=== PATIENT | female | born 1985 | race American Indian/Alaskan Native ===

== ENCOUNTER 2021-03-17 15:44 | Emergency (ER) | payer MEDICARE ==
[2021-03-17 16:02] VITALS: BP 134/76
[2021-03-17] MEDS ORDERED: OXYMETAZOLINE 0.05% NASAL SPRAY NS ONE (17:09)
--- NOTE | 2021-03-17 17:16 | Emergency Department Report ---
ED ENT HPI - General Chief complaint: Nosebleed Stated complaint: BLEEDING NOSE Time Seen by Provider: 03/17/21 16:08 Source: patient Mode of arrival: Ambulatory Limitations: No Limitations - History of Present Illness Initial comments: 36-year-old female the past medical history of hypertension, end-stage renal disease on dialysis (Saturday, , Saturday, anxiety) sickle cell trait, and anemia presents to the hospital complaining of intermittent epistaxis since 6 AM. Bleeding primarily from right nostril which started after blowing her nose. She denies trauma or previous history of episodic. Patient takes aspirin 81 mg daily. Last dialysis was yesterday. Inspector Barrel: Dr. Anderson - Related Data Allergies Allergy/AdvReac Type Severity Reaction Status Date / Time Penicillins Allergy Unknown Verified 03/17/21 15:58 ED Dental HPI - General Chief complaint: Nosebleed Stated complaint: BLEEDING NOSE Time Seen by Provider: 03/17/21 16:08 Source: patient Mode of arrival: Ambulatory Limitations: No Limitations - Related Data Allergies Allergy/AdvReac Type Severity Reaction Status Date / Time Penicillins Allergy Unknown Verified 03/17/21 15:58 ED Review of Systems ROS: Stated complaint: BLEEDING NOSE Other details as noted in HPI Comment: All other systems reviewed and negative ED Past Medical Hx - Past Medical History Previous Medical History?: Yes Hx Hypertension: Yes Hx Renal Disease: Yes (End-stage renal disease on dialysis) Hx Seizures: Yes Hx Psychiatric Treatment: Yes (Anxiety) Additional medical history: Anemia. Sickle cell trait - Surgical History Past Surgical History?: No ED Physical Exam - General Limitations: No Limitations - Other Other exam information: General: No acute distress Head: Atraumatic Eyes: normal appearance ENT: Moist mucous membranes, epistaxis from right nostril. Patient has a hoop noise going to the right nostril. Patient unable to lie pressure to nasal bridge due to the length of her nail Neck: Normal appearance, no midline tenderness Chest: Clear to auscultation bilaterally, right chest wall dialysis cath CV: Regular rate and rhythm, left AV fistula without thrill Abdomen: Soft, normal bowel sounds, nontender, nondistended, no rebound or guarding Back: Normal inspection Extremity: Normal inspection, full range of motion Neuro: Alert O x 3, no facial asymmetry, speech clear, no gross motor sensory deficit Psych: Appropriate behavior Skin: No rash ED Course Vital Signs 03/17/21 15:58 Temperature 98 F Pulse Rate 87 Respiratory 16 Rate Blood Pressure 134/76 [Left] O2 Sat by Pulse 100 Oximetry - Procedure Description Procedures done: Right nostril packing for epistaxis. Decongestant nasal spray x2 placed in right nostril. 5.5cm anterior Rhino rocket placed in right nostr il after activation in sterile water. inflated with apporx 6 ml of air. hemostatsis achieved ED Medical Decision Making - Lab Data Result diagrams: 03/17/21 17:23 03/17/21 17:23 Lab Results 03/17/21 03/17/21 03/17/21 Range/Units 17:23 17: 17:23 WBC 6.5 (4.5-11.0) K/mm3 RBC 3.08 L (3.65-5.03) M/mm3 Hgb 8.3 L (10.1-14.3) gm/dl Hct 26.8 L (30.3-42.9) % MCV 87 (79-97) fl MCH 27 L (28-32) pg MCHC 32 (30-34) % RDW 17.1 H (13.2-15.2) % Plt Count 238 (140-440) K/mm3 Lymph % (Auto) 20.0 (13.4-35.0) % Davis % (Auto) 7.9 H (0.0-7.3) % Eos % (Auto) 4.2 (0.0-4.3) % Baso % (Auto) 1.9 H (0.0-1.8) % Lymph # (Auto) 1.3 (1.2-5.4) K/mm3 Davis # (Auto) 0.5 (0.0-0.8) K/mm3 Eos # (Auto) 0.3 (0.0-0.4) K/mm3 Baso # (Auto) 0.1 (0.0-0.1) K/mm3 Seg Neutrophils % 66.0 (40.0-70.0) % Seg Neutrophils # 4.3 (1.8-7.7) K/mm3 PT 15.3 H (12.2-14.9) Sec. INR 1.09 (0.87-1.13) APTT 33.8 (24.2-36.6) Sec. Sodium 136 L (137-145) mmol/L Potassium 5.3 H (3.6-5.0) mmol/L Chloride 99.5 (98-107) mmol/L Carbon Dioxide 20 L (22-30) mmol/L Anion Gap 22 mmol/L BUN 47 H (7-17) mg/dL Creatinine 9.3 H (0.6-1.2) mg/dL Estimated GFR 5 ml/min BUN/Creatinine Ratio 5 % Glucose 101 H (65-100) mg/dL Calcium 9.1 (8.4-10.2) mg/dL - Medical Decision Making 36-year-old female presents to the hospital planing of epistaxis from right nostril since 6 AM. She has been unable to apply adequate pressure due to length of her nails. She removed her right sided nose ring prior to packing. Packing was successful in stopping bleeding however, patient blew her nose and packing came out. She has declined replacement of packing at this time. She was warned that she may have recurrent bleeding requiring her to return to the ER. Patient understands and prefers to go home without packing at this time. Patient received Dilaudid 0.5 mg and Zofran for pain control during packing procedure. Chronic anemia noted. Patient has mild hyperkalemia with chronic renal failure and due for dialysis tomorrow Critical Care Time: No Critical care attestation.: If time is entered above; I have spent that time in minutes in the direct care of this critically ill patient, excluding procedure time. ED Disposition Clinical Impression: Right-sided epistaxis, End stage renal disease on dialysis, Chronic anemia Disposition: 01 HOME / SELF CARE / HOMELESS Is pt being admited?: No Does the pt Need Aspirin: No Condition: Stable Instructions: Nosebleed, [id number] Additional Instructions: Follow-up with your doctor or doctor/clinic provided. Return if symptoms worsen as indicated by your discharge instructions. Referrals: JUAN MOCK MD [Staff Physician] - 3-5 Days (ENT doctor ) NGUYEN CHOU MD [Referring] - 3-5 Days (Ent doctor ) Time of Disposition: 19:32
[2021-03-17] MEDS ORDERED: WATER FOR IRRIG STERILE 250 ML BOTTLE IR NR (18:00)
[2021-03-17 18:19] LABS: Basophils # (Auto) 0.1 K/mm3 (0.0-0.1); Basophils % (Auto) 1.9 % (0.0-1.8); Eosinophils # (Auto) 0.3 K/mm3 (0.0-0.4); Eosinophils % (Auto) 4.2 % (0.0-4.3); Hemoglobin 8.3 gm/dl (10.1-14.3); Lymphocytes # (Auto) 1.3 K/mm3 (1.2-5.4); Monocytes # (Auto) 0.5 K/mm3 (0.0-0.8); Monocytes % (Auto) 7.9 % (0.0-7.3)
[2021-03-17] MEDS ORDERED: HYDROmorphone 1 MG/1 ML INJ IV ONE (18:19)
[2021-03-17] MEDS ORDERED: ONDANSETRON 4 MG/2 ML INJ IV ONE (18:19)
[2021-03-17 18:26] LABS: INR 1.09 (0.87-1.13)
[2021-03-17 18:27] LABS: Partial Thromboplastin Time 33.8 Sec. (24.2-36.6)
[2021-03-17 18:31] LABS: Calcium 9.1 mg/dL (8.4-10.2)
[2021-03-17 18:32] LABS: Hematocrit 26.8 % (30.3-42.9); Mean Corpuscular HGB Conc 32 % (30-34); Mean Corpuscular Volume 87 fl (79-97); Platelet Count 238 K/mm3 (140-440); Red Blood Count 3.08 M/mm3 (3.65-5.03); Red Cell Distribution Width 17.1 % (13.2-15.2)
== END 2021-03-17 21:30 | disposition home or self-care (01) ==
LOC: ED 15:44
DX: R04.0 Epistaxis (principal); D63.8 Anemia in other chronic diseases classified elsewhere; I12.0 Hypertensive chronic kidney disease with stage 5 chronic kidney disease or end stage renal disease; Z88.0 Allergy status to penicillin
CPT/HCPCS: 30901; 36415; 80048; 85025; 85610; 85730; 96374; 96375; 99283; J1170; J2405

== ENCOUNTER 2021-06-22 18:19 | Emergency (ER) | payer MEDICARE ==
--- NOTE | 2021-06-22 21:05 | Emergency Department Report ---
ED Chest Pain HPI - General Chief Complaint: Chest Pain Stated Complaint: ABDNORMAL EKG Time Seen by Provider: 06/22/21 20:58 Source: patient Mode of arrival: Ambulatory Limitations: No Limitations - History of Present Illness Initial Comments: Patient 36-year-old -[place] female with a history of hypertension , asthma, and ESRD, Dialysis, Tue, Thur, Sat, did complete dialysis today however has not had bp medications, patient presents for chest pain 5/10 x3 days. pain is exacerbated by cough ,and deep inspiration, Patient denies nausea or vo miting. There is no numbness no tingling no lightheadedness fever or chills. Cough is productive yellow. Patient has not had to use inhaler for shortness of breath. Patient states intermittent adherence with hypertension medication MD Complaint: chest pain - Related Data Previous Rx's Medication Instructions Recorded Last Taken Type Acetaminophen [Acetaminophen TAB] 1,000 mg PO Q8H #30 tablet 06/23/21 Unknown Rx Allergies Allergy/AdvReac Type Severity Reaction Status Date / Time Penicillins Allergy Unknown Verified 06/22/21 20:03 Heart Score - HEART Score History: Slightly suspicious EKG: Non-specific Age: < 45 Risk factors: 1-2 risk factors Troponin: 1-3x normal limit HEART Score: 3 - EKG Read Time Time EKG Completed: 20:10 EKG Read Time: 20:11 ED Review of Systems ROS: Stated complaint: ABDNORMAL EKG Other details as noted in HPI Constitutional: denies: chills, fever Eyes: denies: eye pain, eye discharge, vision change ENT: denies: ear pain, throat pain Respiratory: cough. denies: shortness of breath, wheezing Cardiovascular: chest pain. denies: palpitations, dyspnea on exertion Endocrine: no symptoms reported Gastrointestinal: denies: abdominal pain, nausea, vomiting, diarrhea Genitourinary: as per HPI Musculoskeletal: denies: back pain Skin: as per HPI Neurological: denies: headache, weakness, paresthesias, vertigo Psychiatric: denies: anxiety, depression Hematological/Lymphatic: denies: easy bleeding, easy bruising ED Past Medical Hx - Past Medical History Hx Hypertension: Yes Hx Renal Disease: Yes (End-stage renal disease on dialysis TThS) Hx Seizures: Yes Hx Psychiatric Treatment: Yes (Anxiety) Additional medical history: Anemia. Sickle cell trait - Surgical History Additional Surgical History: thyroid removed. ectopic - Medications Home Medications: Home Medications Medication Instructions Recorded Confirmed Last Taken Type Acetaminophen [Acetaminophen TAB] 1,000 mg PO Q8H #30 tablet 06/23/21 Unknown Rx ED Physical Exam - General Limitations: No Limitations General appearance: alert, in no apparent distress - Head Head exam: Present: atraumatic, normocephalic - Eye Eye exam: Present: EOMI Pupils: Present: normal accommodation - ENT ENT exam: Present: normal orophraynx, mucous membranes moist - Neck Neck exam: Present: normal inspection, full ROM. Absent: tenderness, l ymphadenopathy - Respiratory Respiratory exam: Present: normal lung sounds bilaterally. Absent: respiratory distress, wheezes, rales, rhonchi, stridor, chest wall tenderness - Cardiovascular Cardiovascular Exam: Present: regular rate, normal rhythm, normal heart sounds. Absent: systolic murmur, diastolic murmur, rubs, gallop - GI/Abdominal GI/Abdominal exam: Present: soft, normal bowel sounds. Absent: distended, tenderness, guarding, rebound, rigid, bruit, hernia - Rectal Rectal exam: Present: deferred - Extremities Exam Extremities exam: Present: normal inspection, full ROM, normal capillary refill. Absent: pedal edema - Back Exam Back exam: Present: normal inspection, full ROM. Absent: CVA tenderness (R), CVA tenderness (L) - Neurological Exam Neurological exam: Present: alert, oriented X3, CN II-XII intact, normal gait - Expanded Neurological Exam Expanded Patient oriented to: Present: person, place, time Speech: Present: fluid speech Motor strength exam: RUE: 5, LUE: 5, RLE: 5, LLE: 5 Best Eye Response ([place]): (4) open spontaneously Best Motor Response (Tammy): (6) obeys commands Best Verbal Response (Tammy): (5) oriented [place] Total: 15 - Psychiatric Psychiatric exam: Present: normal affect, normal mood - Skin Skin exam: Present: warm, dry, intact, normal color. Absent: rash ED Course Vital Signs 06/22/21 06/22/21 20:07 22:54 Temperature 98.5 F Pulse Rate 73 Respiratory 18 16 Rate Blood Pressure 181/106 O2 Sat by Pulse 100 Oximetry JOEL score - Joel Score Age > 65: (0) No Aspirin use within the Past 7 Days: (0) No 3 or more CAD Risk Factors: (0) No 2 or more Angina events in past 24 hrs: (0) No Known CAD with more than 50% Stenosis: (0) No Elevated Cardiac Markers: (1) Yes ST Deviation Greater than 0.5mm: (0) No JOEL Score: 1 ED Medical Decision Making - Lab Data Result diagrams: 06/22/21 21:03 06/22/21 21:03 Labs 06/22/21 06/22/21 06/22/21 21:03 21:03 22:43 WBC 6.3 RBC 4.11 Hgb 11.3 Hct 34.0 MCV 83 MCH 28 MCHC 33 RDW 17.8 H Plt Count 249 Lymph % (Auto) 25.9 Stark % (Auto) 9.0 H Eos % (Auto) 5.0 H Baso % (Auto) 1.1 Lymph # (Auto) 1.6 Stark # (Auto) 0.6 Eos # (Auto) 0.3 Baso # (Auto) 0.1 Seg Neutrophils % 59.0 Seg Neutrophils # 3.7 Sodium 140 Potassium 4.5 Chloride 98.8 Carbon Dioxide 22 Anion Gap 24 BUN 26 H Creatinine 7.3 H Estimated GFR 8 BUN/Creatinine Ratio 4 Glucose 83 Calcium 10.5 H Total Bilirubin < 0.20 AST 10 ALT 13 Alkaline Phosphatase 115 Troponin T 0.065 H 0.064 H Total Protein 7.7 Albumin 4.2 Albumin/Globulin Ratio 1.2 Triglycerides 127 Cholesterol 203 H LDL Cholesterol Direct 138 H HDL Cholesterol 56 Cholesterol/HDL Ratio 3.62 - EKG Data EKG shows normal: sinus rhythm Rate: bradycardia - EKG Data When compared to previous EKG there are: previous EKG unavailable Interpretation: LVH (SR with inverted TWaves noted Q Waves, no STEMI iterpreted by ed attending. ) - Radiology Data Radiology results: image reviewed CHEST 2 VIEWS INDICATION / CLINICAL INFORMATION: chest pain. COMPARISON: None available. FINDINGS: SUPPORT DEVICES: Right Vas-Cath tip overlies the right atrium HEART / MEDIASTINUM: No significant abnormality. LUNGS / PLEURA: Mild increased interstitial prominence without focal consolidation No pneumothorax. Signer Name: Mo Palomares MD Signed: 06/22/2021 10:39 PM Workstation Name: [id number] Transcribed By: DANTE Dictated By: MAKAYLA PALOMARES MD Electronically Authenticated By: MAKAYLA PALOMARES MD Signed Date/Time: 06/22/212238 DD/ 38 TD/TT: - Medical Decision Making Chest x-ray no infiltrates no opacities, EKG no change from baseline. With sinus and inverted T waves or Q waves there is normal finding for this patient chronic at this time, troponin 0 0.065 and 0.064 which is also normal for this patient, patient client declined to discuss possible admission for evaluation and monitoring and cardiac enzymes. Trending enzymes. Patient did complete dialysis today labs are baseline for this patient. Patient is scheduled for dialysis tomorrow. Patient is adherent with treatment plan. BP is improved. Patient has all medications at home patient will take all medications as prescribed, patient will return to ED should symptoms worsen. There is no chest pain 0/10 at this time. Patient is alert oriented x3 patient is ambulatory from room to bathroom and back without chest pain or shortness of breath, lung sounds are clear throughout patient has no acute distress. Patient DC'd in stable condition at this time. Critical care attestation.: If time is entered above; I have spent that time in minutes in the direct care of this critically ill patient, excluding procedure time. ED Disposition Clinical Impression: Chest pain Qualifiers: Chest pain type: unspecified Qualified Code(s): R07.9 - Chest pain, unspecified Disposition: HOME / SELF CARE / HOMELESS Is pt being admited?: No Does the pt Need Aspirin: No Condition: Stable Instructions: Nonspecific Chest Pain, Adult Additional Instructions: Take all medications as prescribed follow-up with your primary care doctor in the a.m. as scheduled. Follow-up with dialysis as scheduled Saturday. Return to emergency department should symptoms return or worsen. Prescriptions: Acetaminophen [Acetaminophen TAB] 1,000 mg PO Q8H #30 tablet Referrals: JACOB GARSIA MD [Referring] - 3-5 Days Time of Disposition: 00:16
[2021-06-22 21:30] LABS: Alanine Aminotransferase 13 units/L (7-56); Albumin 4.2 g/dL (3.9-5); Blood Urea Nitrogen 26 mg/dL (7-17); Calcium 10.5 mg/dL (8.4-10.2); Hemolysis Index 8
[2021-06-22 21:31] LABS: BUN/Creatinine Ratio 4
[2021-06-22 21:41] LABS: Chol/HDL Ratio 3.62 %; HDL Cholesterol 56 mg/dL (40-59); LDL Cholesterol,Direct 138 mg/dL (50-130)
[2021-06-22] MEDS ORDERED: LISINOPRIL 20 MG TAB PO ONE (22:08)
[2021-06-22] MEDS ORDERED: HYDROcodone/ACETAMINOPHEN 5-325 MG TAB PO ONE (22:08)
[2021-06-22 22:24] LABS: Basophils # (Auto) 0.1 K/mm3 (0.0-0.1); Basophils % (Auto) 1.1 % (0.0-1.8); Eosinophils # (Auto) 0.3 K/mm3 (0.0-0.4); Hemoglobin 11.3 gm/dl (10.1-14.3); Lymphocytes # (Auto) 1.6 K/mm3 (1.2-5.4); Lymphocytes % (Auto) 25.9 % (13.4-35.0); Mean Corpuscular HGB Conc 33 % (30-34); Mean Corpuscular Volume 83 fl (79-97); Monocytes # (Auto) 0.6 K/mm3 (0.0-0.8); Platelet Count 249 K/mm3 (140-440); Red Blood Count 4.11 M/mm3 (3.65-5.03); Red Cell Distribution Width 17.8 % (13.2-15.2)
--- NOTE | 2021-06-22 22:44 | XRay Report ---
CHEST 2 VIEWS INDICATION / CLINICAL INFORMATION: chest pain. COMPARISON: None available. FINDINGS: SUPPORT DEVICES: Right Vas-Cath tip overlies the right atrium HEART / MEDIASTINUM: No significant abnormality. LUNGS / PLEURA: Mild increased interstitial prominence without focal consolidation No pneumothorax. Signer Name: Mo Mendoza MD Signed: 06/22/2021 10:39 PM Workstation Name: [id number]
[2021-06-23 00:47] VITALS: BP 203/115
--- NOTE | 2021-06-23 10:26 | Electrocardiograph Report ---
[facility] Test Date: 2021-06-22 Test Time: 20:20:56 Pat Name: ÁNGELA HARLEY Department: Room: Gender: F Commercial Agent: ELIZABETH : 1985 Requested By: NAYELI KING Order Number: [id number] Reading MD: Remy Gordon Measurements Intervals [place] Rate: 59 P: 48 AL: 126 QRS: 80 QRSD: 109 T: 233 QT: 453 QTc: 449 Interpretive Statements Sinus bradycardia LVH with secondary repolarization abnormality No previous ECG available for comparison Electronically Signed On 06-23-2021 10:26:12 EST by Remy Gordon
== END 2021-06-23 00:47 | disposition home or self-care (01) ==
LOC: ED 18:19
DX: R07.9 Chest pain, unspecified (principal); I10 Essential (primary) hypertension
CPT/HCPCS: 36415; 71046; 80053; 80061; 84484; 85025; 93005; 93010; 99284